=== PATIENT | female | born 2000 | race Caucasian/White ===

== ENCOUNTER 2021-09-19 22:56 | Emergency (ER) | payer BC, OTHER ==
[~2021-09-19] VITALS: Ht 162.6 cm; Wt 79.4 kg
[2021-09-19] MEDS ORDERED: DULOXETINE HCL20 MG PO (23:15)
[2021-09-19] MEDS ORDERED: TRI-SPRINTEC1 EACH PO (23:15)
[2021-09-19] MEDS ORDERED: DICYCLOMINE HCL20 MG PO (23:16)
[2021-09-20 00:10] LABS: ABSOLUTE NEUTROPHILS 5.6 thou/uL (1.4-8.2); EOSINOPHILS 1.7 % (0.0-3.0); HEMATOCRIT 38.7 % (37.0-47.0); HEMOGLOBIN 13.1 gm/dL (12.0-15.0); LYMPHOCYTES 29.3 % (24.0-44.0); MCH 32.4 pg (26.0-34.0); MCHC 33.8 g/dL (28.0-37.0); MONOCYTES 6.6 % (1.0-8.0); PLATELET COUNT 319 thou/uL (150-400); POLYS 61.4 % (36.0-66.0); RBC 4.03 mil/uL (4.20-5.00); RDW 12.7 % (10.5-14.5); WBC 9.1 thou/uL (4.0-11.0)
[2021-09-20 00:13] LABS: CALCIUM 8.7 mg/dL (8.5-10.1); CREATININE 0.6 mg/dL (0.6-1.0); POTASSIUM 4.7 mmol/L (3.5-5.1)
[2021-09-20] MEDS ORDERED: LOMOTIL TABLET1 EACH PO (00:38)
[2021-09-20] MEDS ORDERED: XANAX 0.5 MG0.5 MG PO (00:38)
[2021-09-20 01:14] VITALS: BP 144/73
== END 2021-09-20 01:16 | disposition home or self-care (01) ==
LOC: ER 22:56
PROVIDERS: Emergency Medicine
DX: K52.9 Noninfective gastroenteritis and colitis, unspecified (principal); Z20.822 Contact with and (suspected) exposure to COVID-19; R10.31 Right lower quadrant pain; R10.32 Left lower quadrant pain; F41.9 Anxiety disorder, unspecified; F32.9 Major depressive disorder, single episode, unspecified; Z98.890 Other specified postprocedural states; Z79.899 Other long term (current) drug therapy; Z79.891 Long term (current) use of opiate analgesic